=== PATIENT | female | born 1970 | race Caucasian/White ===

== ENCOUNTER 2016-11-03 18:22 | Emergency (ER) | payer MEDICARE, OTHER ==
--- NOTE | ~2016-11-03 | EKG ---
PATIENT: ROSALIO BROWN UNIT #: [id number] Ventricular Rate: 90 BPM Atrial Rate: 90 BPM P-R Interval: 120 ms QRS Duration: 76 ms Q-T Interval: 342 ms QTC Calculation(Bezet): 418 ms P [place]: 65 degrees Calculated R [place]: 32 degrees Calculated T [place]: 75 degrees Diagnosis Line: Normal sinus rhythm Diagnosis Line: Normal ECG Diagnosis Line: No previous ECGs available Diagnosis Line: Confirmed by BRIAN OTOOLE MD ([id number]) on Diagnosis Line: 11/09/2016 9:00:42 AM INTERPRETING MD: SYDNIE ALVAREZ
--- NOTE | ~2016-11-03 | CT4 ---
[facility] A Service of [facility] RADIOLOGY TEXT RESULTS PATIENT: ROSALIO BROWN LOCATION: SED : 70 UNIT #: [id number] AGE: [address]: SHANTI NARAYANAN SEX: F ORDER DR: [id number] [address] [address] [id number] MR#: [id number] #: [id number] NAME: ROSALIO BROWN. : 1970 SEX: F STUDY DATE/TIME: 11/03/2016 21:11 UNIT: SED ROOM: STUDY DESCRIPTION: CT Abd and Pelv Wo Cont Attending Physician: Shanti Narayanan Aprn Ordering Physician: Shanti Narayanan Aprn Primary Care Physician: Conner De La Paz M.D. MEDICAL IMAGING REPORT This report is preliminary unless electronic signature is present. EXAM CT abdomen and pelvis, noncontrast, kidney stone protocol, 11/03/2016 HISTORY 46-year-old female in the ED complaining of 2-day history of left upper abdomen pain and vomiting. TECHNIQUE CT examination of the abdomen and pelvis was performed without oral or IV contrast using kidney stone protocol. This CT examination was performed with one or more of the following radiation dose reduction techniques: automatic exposure control, adjustment of mA and/or kV according to patient size, and iterative reconstruction. FINDINGS ABDOMEN: Chronic multifocal right renal parenchymal scarring with mild to moderate right renal atrophy. Tiny nonobstructing calculus in the upper pole right kidney and another in the lower pole left kidney. No stone material is seen within the ureters or urinary bladder. No evidence of urinary obstruction. Liver, pancreas and spleen are normal in size and appearance. Nondistended gallbladder. No bile duct dilatation. Normal-caliber abdominal aorta. Hfpe-ta-hjocqsrt diverticulosis throughout the colon, greatest in the left hemicolon. No CT evidence of acute diverticulitis. Normal appendix. PELVIS: Hysterectomy. Bladder and rectum are within normal limits. No inguinal hernia. Limited lung base images show no active disease in the lower chest. [facility] A Service of [facility] RADIOLOGY TEXT RESULTS PATIENT: ROSALIO BROWN LOCATION: [facility] [place] : [birth year] UNIT #: [id number] AGE: [address]: SHANTI NARAYANAN SEX: F ORDER DR: IMPRESSION 1. No acute abnormality is identified within the abdomen or pelvis. No etiology for the patient's reported left upper quadrant abdomen pain. 2. Chronic right renal atrophy. One or 2 tiny nonobstructing calculi within each kidney. No ureteral stone material is seen. No evidence of urinary obstruction. 3. Extensive diverticulosis throughout the colon. Normal appendix. 4. Hysterectomy. Dictated by... Holger Nava M.D. THIS IS AN ELECTRONICALLY VERIFIED REPORT Holger Nava M.D. at 11/04/2016 9:32 PM SUREKHA/karthik TD: 11/04/2016 14:24 JOB #: [id number] MEDICAL IMAGING REPORT Page 1 of 1
[~2016-11-03 18:22] MED LIST: ASPIRIN PO; BACTRIM DS TABL1 TAB PO; CELEXA PO; CERTAGEN PO; EC-NAPROSYN500 MG PO; GLUCOTROL XL PO; LISINOPRIL PO; METFORMIN PO; NEURONTIN PO; ORPHENADRINE ER; TRAZODONE PO; TRICOR PO; ULTRAM PO; VICODIN 5/500 T1 TAB PO
[2016-11-03] MEDS ORDERED: WELLBUTRIN (18:48)
[2016-11-03] MEDS ORDERED: NOVOLOG100 UNIT/1 (18:48)
[2016-11-03] MEDS ORDERED: LANTUS100 UNITS/ (18:48)
[2016-11-03] MEDS ORDERED: ZESTRIL2.5 M1 (18:48)
[2016-11-03 19:28] LABS: URINE SOURCE CLEAN CATCH
[2016-11-03 19:30] LABS: URINE APPEARANCE HAZY; URINE BILIRUBIN NEG (NEG); URINE BLOOD 3+ (NEG); URINE COLOR YELLOW; URINE GLUCOSE NEG (NORM); URINE KETONE NEG (NEG); URINE LEUKOCYTE ESTERASE 3+ (NEG); URINE NITRATE POS (NEG); URINE PROTEIN 2+ (NEG); URINE SPECIFIC GRAVITY >=1.030 (1.003-1.035); URINE UROBILINOGEN 0.2 MG/DL (NORM)
[2016-11-03 19:31] LABS: MICRO INDICATED? YES
[2016-11-03 19:36] LABS: CULTURE INDICATED? YES; URINE BACTERIA 1+ (NEG); URINE RBC 50-100 /[HPF] (0-2); URINE WBC INNUM /[HPF] (0-5)
[2016-11-03 19:37] LABS: URINE MUCUS PRESENT; URINE SQUAMOUS EPITHELIAL CELL MODERATE /[HPF]
[2016-11-03 20:01] LABS: BASOPHIL# 0.1 X10e3 (0-0.3); BASOPHIL% 0.8 % (0-2.5); DIFF IND NO; EOSINOPHIL% 0.2 % (0.0-7.0); HEMATOCRIT 41.9 % (35.0-45.0); HEMOGLOBIN 14.2 gm/dL (12.0-16.0); LYMPHOCYTE# 2.8 X10e3 (1.0-3.5); LYMPHOCYTE% 23.7 % (17.0-45.0); MEAN CELL VOLUME 88.2 FL (83-96); MEAN CORPUSCULAR HEMOGLOBIN 29.9 PG (28-34); MEAN PLATELET VOLUME 9.1 FL (6.5-11.5); MONOCYTE# 0.5 X10e3 (0-1.0); MONOCYTE% 4.5 % (3.0-12.0); NEUTROPHIL# 8.2 X10e3 (1.5-7.1); NEUTROPHIL% 70.8 % (40-75); PLATELET COUNT 188 X10e3 (140-420); RED BLOOD COUNT 4.75 X10e (3.90-5.30); RED CELL DISTRIBUTION WIDTH 15.1 % (11.0-15.5); WHITE BLOOD COUNT 11.6 X10e3 (4.0-10.5)
[2016-11-03 20:17] LABS: ALKALINE PHOSPHATASE 112 U/L (32-92); ALT (SGPT) 102 U/L (10-40); AMYLASE 29 U/L (0-46); AST (SGOT) 44 U/L (10-42); BILIRUBIN,TOTAL 0.5 mg/dL (0.2-2.0); BLOOD UREA NITROGEN 15 mg/dL (9-23); BUN/CREATININE RATIO 18.75; CALCIUM SERUM 9.3 mg/dL (8.4-10.2); CARBON DIOXIDE 22 mmol/L (22-31); CHLORIDE 107 mmol/L (100-111); CREATININE SERUM 0.8 mg/dL (0.6-1.4); GLOM FILT RATE Estimated 88.5 mL/min (>60); GLUCOSE FASTING 185 mg/dL (70-110); LIPASE 33 U/L (22-51); POTASSIUM 3.8 mmol/L (3.5-5.1); SODIUM 137 mmol/L (135-145)
[2016-11-03 20:19] LABS: BILIRUBIN, DIRECT <0.1 mg/dL (0.0-0.2); BILIRUBIN,INDIRECT 0.4 mg/dL (0.0-0.9)
[2016-11-03 21:16] LABS: POC - CKMB <1.0 ng/mL (0.0-7.9); POC - TROPONIN <0.05 ng/mL (<=0.05)
== END 2016-11-03 22:05 | disposition home or self-care (01) ==
LOC: SED 18:22
PROVIDERS: Nurse Practitioner Family
DX: R10.13 Epigastric pain (principal); R30.0 Dysuria; E10.9 Type 1 diabetes mellitus without complications; I10 Essential (primary) hypertension; Z90.710 Acquired absence of both cervix and uterus; F17.210 Nicotine dependence, cigarettes, uncomplicated; Z79.4 Long term (current) use of insulin; Z91.041 Radiographic dye allergy status; Z88.8 Allergy status to other drugs, medicaments and biological substances
CPT/HCPCS: 36415; 74176; 80048; 80076; 81003; 82150; 82553; 83690; 84484; 85025; 87086; 87088; 87186; 93005; 96374; 96375; 99285; J1885; J2405